=== PATIENT | female | born 1960 | race African-American/Black ===

== ENCOUNTER 2016-08-27 13:36 | Emergency (ER) | payer MEDICARE, MEDICAID ==
[~2016-08-27] VITALS: Ht 170.2 cm; Wt 93.0 kg
[~2016-08-27 13:36] MED LIST: ACETAMINOPHEN-1 EAC1 ORAL
--- NOTE | 2016-08-27 14:14 | Emergency Room Report ---
History of Present Illness General Chief Complaint: Abdominal Pain Source: Patient Present Illness HPI Patient's 56-year-old female who presented after having increased epigastric pain. The patient gradual onset of symptoms. Pain is sharp in nature and described as a burning sensation. The patient had associated vomiting as well as diarrhea. The pain had worsened by eating some spicy chicken. Patient had the been having any definite fever but reported having some chills. She had no episodes of definite bloody stools. She reported having had been taking her blood pressure medications. Allergies: Coded Allergies: NO KNOWN ALLERGIES (Unverified Allergy, Unknown, 01/14/15) Patient History Reviewed Nursing Documentation: PMH: Agreed, PSxH: Agreed Nursing Documentation-PMH Hx Hypertension: Yes Hx COPD: Yes Hx Gastrointestinal Problems: Yes - "stomach ulcer" Review of Systems All Other Systems: negative except mentioned in HPI Physical Exam Vital Signs Date Time Temp Pulse Resp B/P Pulse Ox O2 Delivery O2 Flow Rate FiO2 08/27/16 13:40 97.9 83 18 216/110 99 Room Air Sp02 EP Interpretation: reviewed, normal General Appearance: normal inspection, well appearing, alert, GCS 15, moderate distress Head: atraumatic ENT: normal ENT inspection, hearing grossly normal, normal voice Neck: normal inspection, full range of motion, supple, no bony tend Respiratory: normal inspection, lungs clear, normal breath sounds, no respiratory distress, no retraction, no wheezing Cardiovascular #1: regular rate, rhythm, no edema Gastrointestinal: normal inspection, normal bowel sounds, soft, no guarding, no hernia, tenderness - epigastric Genitourinary: no CVA tenderness Musculoskeletal: normal inspection, back normal, normal range of motion Neurologic: normal inspection, alert, oriented x3, responsive, business database analyst III-XII nml as tested, speech normal Psychiatric: normal inspection, judgement/insight normal, mood/affect normal Skin: normal inspection, normal color, no rash Medical Decision Making Diagnostic Impression: Primary Impression: Choledocholithiasis Additional Impressions: Abdominal pain Leukocytosis, unspecified Hypertension ER Course Patient presented for abdominal pain. Differential diagnoses included ischemic bowel, appendicitis, perforated viscus, abdominal aortic aneurysm, inferior myocardial infarction, viral gastroenteritis. The patient was noted to have some prior history of abdominal ulcer. Patient was given IV acid blockers as well as morphine for pain. Patient was given IV Cardizem for hypertension. Patient was noted to have moderately elevated blood pressure with diastolic blood pressure greater than 120. EKG showed unusual P axis without acute ST or T wave changes, CT of the pelvis read by radiology showed gallstones and tiny density distal common bile duct which is possible choledocholith. The patient' s laboratory a CT findings were discussed with Dr. Bishop who agreed accept patient in transfer for O contract. Labs Test 08/27/16 14:05 White Blood Count 18.7 K/UL (4.8-10.8) Red Blood Count 5.24 M/UL (4.20-5.40) Hemoglobin 15.3 G/DL (12.0-16.0) Hematocrit 49.0 % (37.0-47.0) Mean Corpuscular Volume 93 FL (80-99) Mean Corpuscular Hemoglobin 29.2 PG (27.0-31.0) Mean Corpuscular Hemoglobin Concent 31.3 G/DL (32.0-36.0) Red Cell Distribution Width 13.2 % (11.6-14.8) Platelet Count 264 K/UL (150-450) Mean Platelet Volume 7.8 FL (6.5-10.1) Neutrophils (%) (Auto) % (45.0-75.0) Lymphocytes (%) (Auto) % (20.0-45.0) Monocytes (%) (Auto) % (1.0-10.0) Eosinophils (%) (Auto) % (0.0-3.0) Basophils (%) (Auto) % (0.0-2.0) Differential Total Cells Counted 100 Neutrophils % (Manual) 87 % (45-75) Lymphocytes % (Manual) 9 % (20-45) Monocytes % (Manual) 4 % (1-10) Eosinophils % (Manual) 0 % (0-3) Basophils % (Manual) 0 % (0-2) Band Neutrophils 0 % (0-8) Platelet Estimate Adequate Platelet Morphology Normal Red Blood Cell Morphology Normal Prothrombin Time 10.2 SEC (9.30-11.50) Prothromb Time International Ratio 1.0 (0.9-1.1) Activated Partial Thromboplast Time 29 SEC (23-33) Sodium Level 141 mEQ/L (135-145) Potassium Level 3.5 mEQ/L (3.4-4.9) Chloride Level 94 mEQ/L (98-107) Carbon Dioxide Level 28 mEQ/L (20-30) Anion Gap 19 (5-15) Blood Urea Nitrogen 11 mg/dL (7-23) Creatinine 1.0 mg/dL (0.5-0.9) Estimat Glomerular Filtration Rate > 60 mL/min (>60) Glucose Level 103 mg/dL (74-106) Calcium Level 10.0 mg/dL (8.6-10.2) Total Bilirubin 0.6 mg/dL (0.0-1.2) Aspartate Amino Transf (AST/SGOT) 33 U/L (5-40) Alanine Aminotransferase (ALT/SGPT) 22 U/L (3-33) Alkaline Phosphatase 90 U/L (35-104) Troponin I < 0.30 ng/mL (<=0.30) Total Protein 7.5 g/dL (6.6-8.7) Albumin 4.1 g/dL (3.5-5.2) Globulin 3.4 g/dL Albumin/Globulin Ratio 1.2 (1.0-2.7) Lipase 23 U/L (< 60) EKG Diagnostic Results Rate: normal Rhythm: other - unusual p axis ST Segments: no acute changes - motion artifact, qt prolongation ASA given to the pt in ED: No Rhythm Strip Diag. Results EP Interpretation: yes Rhythm: NSR, no PVC's, no ectopy Chest X-Ray Diagnostic Results EP Interpretation: Yes Last Vital Signs Date Time Temp Pulse Resp B/P Pulse Ox O2 Delivery O2 Flow Rate FiO2 08/27/16 13:40 97.9 83 18 216/110 99 Room Air Status: unchanged Disposition: [facility]FER [facility] Condition: Serious Rusty Cook Aug 27, 2016 14:14
[2016-08-27] MEDS ORDERED: Mylanta II UD 30ml ORAL ONE (14:15)
[2016-08-27] MEDS ORDERED: Diltiazem 25mg/5ml IV ONE (14:15)
[2016-08-27] MEDS ORDERED: Famotidine 20 MG/ 2ML VIAL IVP ONE (14:15)
[2016-08-27] MEDS ORDERED: Morphine Sulfate 4mg/ml Inj IVP ONE (14:15)
[2016-08-27 14:37] LABS: MEAN CORPUSCULAR HEMOGLOBIN 29.2 PG (27.0-31.0); MEAN CORPUSCULAR HGB CONC 31.3 G/DL (32.0-36.0); MEAN CORPUSCULAR VOLUME 93 FL (80-99); MEAN PLATELET VOLUME 7.8 FL (6.5-10.1); PLATELET COUNT 264 K/UL (150-450); RED BLOOD COUNT 5.24 M/UL (4.20-5.40); RED CELL DISTRIBUTION WIDTH 13.2 % (11.6-14.8); WHITE BLOOD COUNT 18.7 K/UL (4.8-10.8)
[2016-08-27 14:50] LABS: PROTHROMBIN TIME 10.2 SEC (9.30-11.50)
[2016-08-27 14:57] LABS: TROPONIN I < 0.30 ng/mL (<=0.30)
[2016-08-27 15:01] LABS: ALANINE AMINOTRANSFERASE 22 U/L (3-33); ALBUMIN/GLOBULIN RATIO 1.2 (1.0-2.7); ANION GAP 19 (5-15); ASPARTATE AMINO TRANSFERASE 33 U/L (5-40); CARBON DIOXIDE 28 mEQ/L (20-30); CHLORIDE 94 mEQ/L (98-107); GLOMERULAR FILTRATION RATE > 60 mL/min (>60); HEMOLYSIS 8; LIPASE 23 U/L (< 60); POTASSIUM 3.5 mEQ/L (3.4-4.9); SODIUM 141 mEQ/L (135-145); TOTAL PROTEIN 7.5 g/dL (6.6-8.7)
[2016-08-27] MEDS ORDERED: SPIRIVA18 MCG INH (15:32)
[2016-08-27] MEDS ORDERED: [UNRECOGNIZED DRUG - REMARK] (15:32)
[2016-08-27] MEDS ORDERED: ALBUTEROL2.5 MG/3 M INH (15:32)
[2016-08-27] MEDS ORDERED: OMEPRAZOLE40 M1 ORAL (15:32)
[2016-08-27 16:00] VITALS: BP 190/120
[2016-08-27] MEDS ORDERED: Ampicillin/Sulbactam Sod 3 GM in NS 110 ML IVPB ONE (16:00)
[2016-08-27] MEDS ORDERED: Unasyn 3gm Inj ONE (16:21)
[2016-08-27 16:41] VITALS: BP 153/105
[2016-08-27 17:10] LABS: LYMPHOCYTES % (MANUAL) 9 % (20-45); NEUTROPHILS % (MANUAL) 87 % (45-75); TOTAL CELLS COUNTED 100
[2016-08-27 17:13] LABS: BAND NEUTROPHILS % (MANUAL) 0 % (0-8); BASOPHILS % (MANUAL) 0 % (0-2); EOSINOPHILS % (MANUAL) 0 % (0-3); PLATELET ESTIMATE ADEQUATE; PLATELET MORPHOLOGY NORMAL
[2016-08-27 18:07] VITALS: BP 153/105
--- NOTE | 2016-08-28 10:33 | Diagnostic Imaging Report ---
Clinical Indication: Abdominal pain Technique: No oral contrast utilized, per emergency room physician request IV administration nonionic contrast. Venous phase spiral acquisition obtained through the abdomen and pelvis. Multiplanar reconstructions were generated. Total dose length product 918 mGycm. CTDIvol(s) 18 mGy. Dose reduction achieved using automated exposure control Comparison: None Findings: The gallbladder is distended. There is some pericholecystic fluid and mild gallbladder wall thickening. Gallstones are seen within the fundus as well as a stone in the neck. The common bile duct is dilated, measuring 9 mm very questionable slightly radiopaque area is seen in the downstream common bile duct, could represent choledocholithiasis, but this is uncertain No evidence of pancreatic head mass. The pancreas is unremarkable. There is also mild central intrahepatic biliary ductal dilatation. No focal hepatic abnormality. The spleen, adrenals are unremarkable. The kidneys demonstrate bilateral subcentimeter low-attenuation lesions which are too small to characterize, most likely benign simple cortical cysts. The bladder is unremarkable. No pelvic mass or adenopathy. Normal uterus and ovaries. Lack of enteric contrast limits assessment of the GI tract. There is colonic diverticulosis. No evidence of diverticulitis. There is equivocal mild thickening of the cecal wall. The appendix is not definitely visualized, but there are no findings to suggest acute appendicitis. There are sizable multiple fat-containing ventral hernias, at least 3. These are in the midline near the umbilicus. The distal esophagus, stomach, duodenum are unremarkable. The included lung bases demonstrate a small Bochdalek hernia on the right, are otherwise clear. The bones demonstrate mild degenerative spondylosis changes. Impression: Cholelithiasis with likely gallbladder neck stone. Distended thickwalled gallbladder with pericholecystic fluid, concerning for acute cholecystitis. Consider ultrasound and/or nuclear medicine hepatobiliary scan for further evaluation. Central intrahepatic and extrahepatic biliary ductal dilatation, possible downstream choledocholithiasis. Correlate with liver function tests, consider MRCP or nuclear medicine hepatobiliary scan for further evaluation as clinically indicated Equivocal mild cecal wall thickening, significance uncertain, inflammation not excludable. Correlate with clinical findings Diverticulosis. No evidence of diverticulitis Bilateral renal subcentimeter low-attenuation lesions, too small to characterize, most likely benign simple cortical cysts. No further evaluation necessary Other findings as noted, including degenerative spondylosis, small right-sided Bochdalek hernia, multiple midline fat-containing ventral hernias This agrees with the preliminary interpretation provided overnight by Dr. Mosqueda The CT scanner at [facility] is accredited by the [employer] and the scans are performed using protocols designed to limit radiation exposure to as low as reasonably achievable to attain images of sufficient resolution adequate for diagnostic evaluation.
--- NOTE | 2016-08-28 13:51 | Diagnostic Imaging Report ---
Indication: PAIN Technique: One view of the chest Comparison: none Findings: Normal heart size. Aorta is tortuous and ectatic. Impression: No acute process
--- NOTE | 2016-08-29 08:46 | Cardiology Report ---
APPROVED REPORT EKG Measurement Heart [id number] FL [id number] [id number] Sinus rhythm with a single atrial premature complex Abnormal ECG
== END 2016-08-27 18:10 | disposition short-term general hospital (02) ==
LOC: EMR 14:39
DX: K80.50 Calculus of bile duct without cholangitis or cholecystitis without obstruction (principal); I10 Essential (primary) hypertension; D72.829 Elevated white blood cell count, unspecified; J44.9 Chronic obstructive pulmonary disease, unspecified; K57.30 Diverticulosis of large intestine without perforation or abscess without bleeding
CPT/HCPCS: 36415; 71010; 74177; 80053; 83690; 84484; 85007; 85025; 85610; 85730; 86850; 86900; 86901; 93005; 96374; 96375; 99285; J0295; J2270; J2405; Q9967; S0028

== ENCOUNTER 2019-05-05 09:45 | Emergency (ER) | payer MEDICARE, MEDICAID ==
[~2019-05-05] VITALS: Ht 170.2 cm; Wt 97.5 kg
[~2019-05-05 09:45] MED LIST changes: +ALBUTEROL2.5 MG/3 M INH; +OMEPRAZOLE40 M1 ORAL; +SPIRIVA18 MCG INH; +[UNRECOGNIZED DRUG - REMARK]
--- NOTE | 2019-05-05 09:47 | NUR ---
ED Nurse Note: Pt ambulated to ED with c/o dyspnea. Pt is AOx4, uses accessory muscles upon breathing. Placed on bed and gown; hooked to laboratory monitor. Latest sat is 96% on RA. Per pt she has hx of COPD but started having trouble breathing this morning.
[2019-05-05 09:50] VITALS: BP 167/114
[2019-05-05] MEDS: Albuterol/Ipratropium 3ml neb HHN SCH ×4 (10:15→15:19)
--- NOTE | 2019-05-05 10:53 | NUR ---
ED Nurse Note: RT on bedside.
--- NOTE | 2019-05-05 10:55 | NUR ---
ED Nurse Note: X-ray on bedside.
[2019-05-05] MEDS ORDERED: TRIAMTERENE-HC1 EAC7 ORAL (10:56)
[2019-05-05] MEDS ORDERED: BENAZEPRIL HCL20 MG ORAL (10:56)
[2019-05-05] MEDS ORDERED: LORATADINE10 M2 PO (10:56)
[2019-05-05] MEDS ORDERED: AMLODIPINE BESYL5 MG ORAL (10:56)
[2019-05-05 10:57] LABS: BASOPHILS % (AUTO) 0.8 % (0.0-2.0); EOSINOPHILS % (AUTO) 0.9 % (0.0-3.0); HEMATOCRIT 45.7 % (37.0-47.0); HEMOGLOBIN 14.5 G/DL (12.0-16.0); LYMPHOCYTES % (AUTO) 15.1 % (20.0-45.0); MEAN CORPUSCULAR VOLUME 92 FL (80-99); MONOCYTES % (AUTO) 12.7 % (1.0-10.0); NEUTROPHILS % (AUTO) 70.5 % (45.0-75.0); PLATELET COUNT 212 K/UL (150-450); RED BLOOD COUNT 4.95 M/UL (4.20-5.40); RED CELL DISTRIBUTION WIDTH 12.3 % (11.6-14.8); WHITE BLOOD COUNT 10.6 K/UL (4.8-10.8)
[2019-05-05 10:59] LABS: APPEARANCE,URINE CLEAR; BILIRUBIN, URINE NEGATIVE (NEGATIVE); COLOR,URINE PALE YELLOW; GLUCOSE, URINE (UA) NEGATIVE (NEGATIVE); KETONES,URINE NEGATIVE (NEGATIVE); LEUKOCYTE ESTERASE ,URINE NEGATIVE (NEGATIVE); NITRITE,URINE NEGATIVE (NEGATIVE); PH,URINE 7 (4.5-8.0); PROTEIN,URINE 2+ (NEGATIVE); UROBILINOGEN,URINE NORMAL MG/DL (0.0-1.0)
[2019-05-05 11:02] LABS: ANION GAP 8 mmol/L (5-15); BLOOD UREA NITROGEN 11 mg/dL (7-18); CALCIUM 8.8 MG/DL (8.5-10.1); CARBON DIOXIDE 30 MMOL/L (21-32); CHLORIDE 105 MMOL/L (98-107); CREATININE 1.1 MG/DL (0.55-1.30); POTASSIUM 3.4 MMOL/L (3.5-5.1); SODIUM 143 MMOL/L (136-145)
[2019-05-05 11:15] LABS: ALANINE AMINOTRANSFERASE 32 U/L (12-78); ALBUMIN 3.5 G/DL (3.4-5.0); ALBUMIN/GLOBULIN RATIO 0.7 (1.0-2.7); ALKALINE PHOSPHATASE 97 U/L (46-116); ASPARTATE AMINO TRANSFERASE 38 U/L (15-37); BILIRUBIN,TOTAL 0.6 MG/DL (0.2-1.0); CKMB 2.5 NG/ML (0.0-3.6)
--- NOTE | 2019-05-05 11:15 | NUR ---
ED Nurse Note: PT receiving breathinx Tx at bedside.
[2019-05-05 11:17] VITALS: BP 162/127
[2019-05-05] MEDS ORDERED: Albuterol ud Inhalation HHN ONE ×2 (14:00→15:30)
--- NOTE | 2019-05-05 14:26 | Emergency Room Report ---
History of Present Illness General Chief Complaint: Dyspnea/Respdistress Source: Patient Present Illness HPI 88-year-old female presents to emergency room with acute respiratory distress with started yesterday associated with cough and yellow sputum production. Patient reports longstanding history of COPD. She reports she is supposed to quit smoking due to her COPD however she has been unable to and still smokes several cigarettes per day. Her last cigarette was 6 hours ago. Allergies: Coded Allergies: NO KNOWN ALLERGIES (Unverified Allergy, Unknown, 01/14/15) Nursing Documentation-[facility] Past Medical History: No History, Except For Hx Hypertension: Yes Hx Asthma: Yes Hx COPD: Yes Hx Gastrointestinal Problems: Yes - "stomach ulcer" Review of Systems Constitutional: Denies: chills, fever Respiratory: Reports: cough, shortness of breath Cardiovascular: Denies: chest pain, palpitations Gastrointestinal: Denies: diarrhea, vomiting Genitourinary: Denies: hematuria, pain Musculoskeletal: Denies: joint swelling Skin: Denies: rash, lesions Neurological: Denies: headache, dizziness Physical Exam Vital Signs Date Time Temp Pulse Resp B/P (MAP) Pulse Ox O2 Delivery O2 Flow Rate FiO2 05/05/19 09:46 97.9 98 22 188/110 (136) 90 Room Air 05/05/19 11:14 4.0 36 Sp02 EP Interpretation: reviewed General Appearance: well appearing, no apparent distress, non-toxic, moderate distress Head: normocephalic, atraumatic Eyes: bilateral eye normal inspection ENT: hearing grossly normal, EOM grossly intact, moist mucus membranes Neck: supple Respiratory: normal breath sounds, respiratory distress - Moderate, accessory muscle use, rhonchi - Bilaterally, speaking full sentences Cardiovascular #1: regular rate, rhythm, normal capillary refill Cardiovascular #2: 2+ radial (R), 2+ radial (L) Gastrointestinal: soft, non-distended Rectal: deferred Musculoskeletal: moves extm spontaneously, no lower extremity edema Neurologic: alert, grossly normal Psychiatric: mood/affect normal Skin: warm/dry, normal turgor Medical Decision Making ER Course 58-year-old female presents with COPD exacerbation found to have wheezing and rhonchi on exam. Note associated yellow sputum production. We will treat patient's symptoms with multiple nebulizers, steroids, chest x-ray , lab testing and reevaluate. 1300 patient symptoms improving however still multiple areas of rhonchi. Will repeat duoneb treatment 1400-rhonchi improving however still patient reporting symptoms of tightness and tachypnea pill will add on albuterol nebulizer. Laboratory Tests Test 05/05/19 10:00 05/05/19 10:15 05/05/19 12:01 Urine Color Pale yellow Urine Appearance Clear Urine pH 7 (4.5-8.0) Urine Specific [place] 1.005 (1.005-1.035) Urine Protein 2+ (NEGATIVE) H Urine Glucose (UA) Negative (NEGATIVE) Urine Ketones Negative (NEGATIVE) Urine Blood 1+ (NEGATIVE) H Urine Nitrite Negative (NEGATIVE) Urine Bilirubin Negative (NEGATIVE) Urine Urobilinogen Normal MG/DL (0.0-1.0) Urine Leukocyte Esterase Negative (NEGATIVE) Urine RBC 0-2 /HPF (0 - 2) Urine WBC 0 /HPF (0 - 2) Urine Squamous Epithelial Cells Occasional /LPF Urine Bacteria Occasional /HPF (NONE) White Blood Count 10.6 K/UL (4.8-10.8) Red Blood Count 4.95 M/UL (4.20-5.40) Hemoglobin 14.5 G/DL (12.0-16.0) Hematocrit 45.7 % (37.0-47.0) Mean Corpuscular Volume 92 FL (80-99) Mean Corpuscular Hemoglobin 29.2 PG (27.0-31.0) Mean Corpuscular Hemoglobin Concent 31.6 G/DL (32.0-36.0) L Red Cell Distribution Width 12.3 % (11.6-14.8) Platelet Count 212 K/UL (150-450) Mean Platelet Volume 6.6 FL (6.5-10.1) Neutrophils (%) (Auto) 70.5 % (45.0-75.0) Lymphocytes (%) (Auto) 15.1 % (20.0-45.0) L Monocytes (%) (Auto) 12.7 % (1.0-10.0) H Eosinophils (%) (Auto) 0.9 % (0.0-3.0) Basophils (%) (Auto) 0.8 % (0.0-2.0) Sodium Level 143 MMOL/L (136-145) Potassium Level 3.4 MMOL/L (3.5-5.1) L Chloride Level 105 MMOL/L (98-107) Carbon Dioxide Level 30 MMOL/L (21-32) Anion Gap 8 mmol/L (5-15) Blood Urea Nitrogen 11 mg/dL (7-18) Creatinine 1.1 MG/DL (0.55-1.30) Estimate Glomerular Filtration Rate > 60 mL/min (>60) Glucose Level 94 MG/DL (74-106) Calcium Level 8.8 MG/DL (8.5-10.1) Total Bilirubin 0.6 MG/DL (0.2-1.0) Aspartate Amino Transferase (AST) 38 U/L (15-37) H Alanine Aminotransferase (ALT) 32 U/L (12-78) Alkaline Phosphatase 97 U/L (46-116) Creatine Kinase MB 2.5 NG/ML (0.0-3.6) Troponin I 0.010 ng/mL (0.000-0.056) Pro-B-Type Natriuretic Peptide 1064 pg/mL (0-125) H Total Protein 8.4 G/DL (6.4-8.2) H Albumin 3.5 G/DL (3.4-5.0) Globulin 4.9 g/dL Albumin/Globulin Ratio 0.7 (1.0-2.7) L Arterial Blood pH 7.406 (7.350-7.450) Arterial Blood Partial Pressure CO2 48.9 mmHg (35.0-45.0) H Arterial Blood Partial Pressure O2 108.3 mmHg (75.0-100.0) H Arterial Blood HCO3 30.0 mmol/L (22.0-26.0) H Arterial Blood Oxygen Saturation 97.9 % (95-100) Arterial Blood Base Excess 4.3 (-2-2) H Braxton Test Positive Lab Results Impression CBC within normal limits, chemistry noted mild hypokalemia, elevated proBNP of 1000, negative troponin, ABG noted mild elevation of CO2 consistent with patient smoking history and COPD exacerbation, EKG Diagnostic Results EKG Time: 10:46 EP Interpretation: Normal sinus rhythm rate of 88 Rate: normal Rhythm: NSR ST Segments: other Chest X-Ray Diagnostic Results Chest X-Ray Diagnostic Results : Chest X-Ray Ordered: Yes # of Views/Limited/Complete: 1 View Indication: Shortness of Breath EP Interpretation: Yes Interpretation: no consolidation, no effusion, no pneumothorax, no acute cardiopulmonary disease Impression: No acute disease Last Vital Signs Date Time Temp Pulse Resp B/P (MAP) Pulse Ox O2 Delivery O2 Flow Rate FiO2 05/05/19 14:08 110 23 95 Nasal Cannula 4.0 36 106 23 93 05/05/19 11:17 97.9 162/127 Reevaluation Impression Patient's care discussed with Dr. Israel Grajeda who accepted patient to be transferred for COPD exacerbation. Disposition: ER T-[facility] Referrals: Kerwin Menenedz MD (PCP) Kevon Lange M.D. May 05, 2019 14:26
--- NOTE | 2019-05-05 14:40 | NUR ---
ED Nurse Note: Called [facility] [place] to give report for transfer. Spoke with DEJUAN Ramos on behalf of Joan ZAIDI. Report given.
[2019-05-05] MEDS ORDERED: Acetaminophen 500mg (ES) tab ORAL ONE (15:00)
[2019-05-05 15:25] VITALS: BP 163/108
--- NOTE | 2019-05-05 15:25 | NUR ---
TRANSFER TO [facility]: Patient transferred to [facility] as ordered, per Cass Wood MD . Report given to Rachel ZAIDI. Belongings and medications given to Paramedics/RN on transport. Family and or S/O informed of transfer.
--- NOTE | 2019-05-05 18:13 | Diagnostic Imaging Report ---
Indication: Shortness of Technique: One view of the chest Comparison: 08/27/2016 Findings: The heart is upper limits normal in size. The aorta is tortuous ectatic and calcified. There is no significant interim change Impression: No acute process
== END 2019-05-05 15:25 | disposition short-term general hospital (02) ==
LOC: EMR 10:28
DX: R06.03 Acute respiratory distress (principal); J44.9 Chronic obstructive pulmonary disease, unspecified; I10 Essential (primary) hypertension; F17.210 Nicotine dependence, cigarettes, uncomplicated; E87.6 Hypokalemia
CPT/HCPCS: 36415; 36600; 71045; 80053; 81003; 82553; 82803; 82962; 83880; 84484; 85025; 93005; 99284; J7620